=== PATIENT | female | born 1960 | race Two or more races ===

== ENCOUNTER 2018-07-01 05:50 | Emergency (ER) | payer MEDICAID ==
[~2018-07-01] VITALS: Ht 157.5 cm; Wt 79.4 kg
[2018-07-01] MEDS ORDERED: SODIUM CHLORIDE 0.9% 1,000 ML IV ONE (07:02)
[2018-07-01 07:04] LABS: Basophils # (auto) 0 uL; Basophils % (auto) 0.7 % (0.0-2.0); Calcium 8.8 mg/dL (8.5-10.1); Eosinophils # (auto) 0.2 uL; Eosinophils % (auto) 3.1 % (0.0-7.0); Hematocrit 41.1 % (36.0-46.0); Hemoglobin 14.2 g/dL (12.2-16.2); Lymphocytes # (auto) 1.8 uL; Lymphocytes % (auto) 28.2 % (10.0-50.0); Mean Corpuscular Hemoglobin 30.6 pg (28.0-32.0); Mean Corpuscular Hgb Conc. 34.5 g/dL (32.0-36.0); Mean Corpuscular Volume 88.7 fL (80.0-100.0); Monocytes # (auto) 0.5 uL; Neutrophils # (auto) 3.8 uL; Nucleated Red Blood Cells % 0.1 %; Platelet Count (auto) 334 10^3/uL (140-450); Potassium 3.8 mmol/L (3.5-5.1); Red Blood Cells 4.63 10^6/uL (4.0-5.20); White Blood Cell 6.3 10^3/uL (4.4-10.8)
[2018-07-01 07:08] LABS: Bilirubin, Total 0.5 mg/dL (0.2-1.0); Total Protein 8.6 g/dL (6.4-8.2)
[2018-07-01] MEDS ORDERED: MECLIZINE HCL 25 MG TAB PO ONE (07:15)
[2018-07-01] MEDS ORDERED: LORazepam 2MG/ML-1ML VIAL IV ONE (07:15)
[2018-07-01 08:22] VITALS: BP 122/76
[2018-07-01 08:41] LABS: Urine Bacteria FEW /hpf (None Seen); Urine Blood Negative /uL (Negative); Urine Specific Gravity 1.005 (1.001-1.035); Urine WBC 5 /hpf (0 - 5)
== END 2018-07-01 09:20 | disposition home or self-care (01) ==
LOC: ER 06:00
DX: R42 Dizziness and giddiness (principal); N39.0 Urinary tract infection, site not specified; I10 Essential (primary) hypertension; E78.5 Hyperlipidemia, unspecified
CPT/HCPCS: 36415; 80053; 81001; 82150; 83690; 85025; 93005; 96361; 96374; 99284; J2060; J7030; J8597

== ENCOUNTER 2018-12-28 16:01 | Emergency (ER) | payer MEDICAID ==
[~2018-12-28] VITALS: Ht 160 cm; Wt 59.0 kg
[2018-12-28 16:37] VITALS: BP 138/92
[2018-12-28] MEDS: ALPRAZolam 0.5 MG TAB PO ONE ×2 (16:45→16:57)
[2018-12-28] MEDS ORDERED: LORazepam 0.5 MG TAB PO ONE (17:00)
== END 2018-12-28 18:58 | disposition home or self-care (01) ==
LOC: EDBD 16:01 → ER 16:02
DX: F43.23 Adjustment disorder with mixed anxiety and depressed mood (principal); E78.5 Hyperlipidemia, unspecified; I10 Essential (primary) hypertension